=== PATIENT | female | born 1960 | race African-American/Black ===

== ENCOUNTER 2018-07-03 18:29 | Observation (INO) ==
[2018-07-03] MEDS ORDERED: ONDANSETRON 4 MG/2 ML VIAL IV STA (19:19)
[2018-07-03] MEDS ORDERED: ASPIRIN 325 MG TABLET PO STA (19:19)
[2018-07-03] MEDS ORDERED: MORPHINE 4 MG/1 ML VIAL IV STA (19:19)
[2018-07-03] MEDS ORDERED: ALUM/MAG/SIMETH/LIDO VISC 1:1 30 ML BOTTLE PO STA (19:19)
[2018-07-03] MEDS ORDERED: NITROGLYCERIN 2% OINT 1 INCH/GM PACK TOP STA (19:19)
[2018-07-03 19:47] LABS: Basophils % 0.2 % (0.0-0.8); Eosinophils # 0.1 10*3/uL (0.0-0.87); Eosinophils % 0.7 % (0.00-10.9); Hematocrit 38.4 VOL% (35.7-47.0); Hemoglobin 11.6 GM/DL (12.0-16.0); Immature Granulocytes % 0.3 %; Immature Granulocytes Absolute 0.03 #; Lymphocytes # 2.9 10*3/uL (1.4-4.0); Lymphocytes % 30.8 % (21.3-54.2); Mean Corpuscular HGB Conc 30.2 GM/DL (32-36); Mean Corpuscular Hemoglobin 22 PG (27-34); Mean Corpuscular Volume 73.7 FL (87-102); Mean Platelet Volume 9.8 FL (9.6-12.0); Monocytes # 0.7 10*3/uL (0.11-0.8); Monocytes % 7.5 % (1.7-12.7); Neutrophils # 5.7 10*3/uL (1.4-7.4); Neutrophils % 60.5 % (38.7-73.9); Platelet Count 295 T/CUMM (130-400); Red Blood Count 5.21 MC/CUMM (3.8-5.5); Red Cell Distribution Width 14.6 % (9.3-17.3); White Blood Count 9.4 T/CUMM (4-12)
[2018-07-03 19:58] LABS: PT Patient Result 11.2 SECS
[2018-07-03 21:18] LABS: Bilirubin,Total 0.4 MG/DL (0.2-1.0); Calcium 8.9 MG/DL (8.5-10.1); Osmolality,Calculated 281.7 MOS/KG (273-304); Potassium 3.4 MMOL/L (3.5-5.1); Total Protein 7.3 G/DL (6.4-8.3)
[2018-07-03] MEDS ORDERED: POTASSIUM CHLORIDE 20 MEQ TABLET PO STA (21:26)
[2018-07-03] MEDS ORDERED: MAGNESIUM SULF RIDER 2 GM in PREMIX 1 EACH IV STA (21:26)
[2018-07-03] MEDS ORDERED: MORPHINE 4 MG/1 ML VIAL IV PRN (23:19)
[2018-07-03] MEDS ORDERED: ONDANSETRON 4 MG/2 ML VIAL IV PRN (23:19)
[2018-07-03] MEDS ORDERED: DOCUSATE SODIUM 100 MG CAPSULE PO PRN (23:23)
[2018-07-03] MEDS ORDERED: DEXTROSE 50% 25 GM/50 ML SYRINGE IV PRN (23:24)
[2018-07-03] MEDS ORDERED: GLUCAGON 1 MG VIAL IM PRN (23:24)
[2018-07-03] MEDS ORDERED: ENOXAPARIN 40 MG/0.4 ML SYRINGE SUBCUT SCH (23:30)
[2018-07-04 00:02] LABS: Risk Ratio 4.11; VLDL CHOLESTEROL 20.8 MG/DL
[2018-07-04] MEDS: NITROGLYCERIN 2% OINT 1 INCH/GM PACK TOP SCH ×4 (01:01→18:28)
[2018-07-04 02:36] LABS: Apearance,Urine Slightly Hazy (Clear); Bacteria,Urine Occasional /HPF (Few); Bilirubin,Urine Negative (Negative); Blood, Urine Negative (Negative); Glucose,Urine (UA) >=500 mg/dL (Negative); Ketones,Urine 5 mg/dL (Negative); Mucus,Urine Occasional /LPF (Occasional); Nitrite,Urine Negative (Negative); Protein,Urine 100 MG/DL; RBC,Urine 4 /HPF (0-4); Squamous Epithelial Cell,Urine Occasional /HPF (0-10); Transitional Epi Cells,Urine Occasional /HPF (<1); Urine Color Yellow (Yellow); Urine Specific Gravity 1.022 (1.001-1.035); Urine Urobilinogen < 2.0 EU/DL (0.2-1.0); WBC,Urine 4 /HPF (0-6)
[2018-07-04] MEDS ORDERED: LEVOTHYROXINE 50 MCG TABLET PO SCH (06:00)
[2018-07-04] MEDS ORDERED: hydroCHLOROthiazide 25 MG TABLET PO SCH (09:00)
[2018-07-04] MEDS ORDERED: ATORVASTATIN 10 MG TABLET PO SCH (09:00)
[2018-07-04] MEDS: GABAPENTIN 600 MG TABLET PO SCH ×2 (09:13→15:55)
[2018-07-04] MEDS: CARVEDILOL 25 MG TABLET PO SCH ×2 (09:13→17:26)
[2018-07-04] MEDS: INSULIN REGULAR 100 UNIT/ML SUBCUT SCH ×3 (09:17→17:26)
[2018-07-04] MEDS ORDERED: amLODIPine 5 MG TABLET PO SCH (11:00)
[2018-07-04 16:17] VITALS: BP 112/66
[2018-07-05] MEDS ORDERED: PANTOPRAZOLE 40 MG TABLET PO SCH (09:00)
[2018-07-05] MEDS ORDERED: ASPIRIN EC 81 MG TABLET PO SCH (09:00)
== END 2018-07-04 18:55 | disposition home or self-care (01) ==
LOC: N.ED 18:29 → N.EDINP 23:19 → INTOOBSV 23:19 → N.EDINP 07-04 00:25 → N.3E 07-04 02:08
PROVIDERS: ADMIT Internal Medicine; ATTEND Internal Medicine

== ENCOUNTER 2021-09-18 18:30 | Inpatient (IN) ==
[2021-09-18] MEDS ORDERED: SODIUM CHLORIDE 0.9% 500 ML IV STA (23:23)
[2021-09-18] MEDS ORDERED: ONDANSETRON 4 MG/2 ML VIAL IV STA (23:23)
[2021-09-19 01:02] LABS: Basophils % 0.3 % (0.0-0.8); Hematocrit 42.1 VOL% (35.7-47.0); Hemoglobin 12.4 GM/DL (12.0-16.0); Immature Granulocytes % 0.3 %; Immature Granulocytes Absolute 0.03 #; Lymphocytes # 2.5 10*3/uL (1.4-4.0); Lymphocytes % 24.3 % (21.3-54.2); Mean Corpuscular HGB Conc 29.5 GM/DL (32-36); Mean Corpuscular Volume 73.6 FL (87-102); Mean Platelet Volume 10.7 FL (9.6-12.0); Monocytes # 0.6 10*3/uL (0.11-0.8); Monocytes % 5.3 % (1.7-12.7); Neutrophils % 69.8 % (38.7-73.9); Platelet Count 295 T/CUMM (130-400); Red Blood Count 5.72 MC/CUMM (3.8-5.5); Red Cell Distribution Width 17.1 % (9.3-17.3); White Blood Count 10.4 T/CUMM (4-12)
[2021-09-19 01:05] LABS: Alanine Aminotransferase 29 U/L (13-56); Albumin 3.8 G/DL (3.4-5.0); Alkaline Phosphatase 115 U/L (45-117); Aspartate Amino Transferase 21 U/L (0-37); Bilirubin,Total < 0.39 MG/DL (0.20-1.00); Blood Urea Nitrogen 46 MG/DL (7-18); Calcium 9.9 MG/DL (8.5-10.1); Carbon Dioxide 28 MMOL/L (21-32); Chloride 105 MMOL/L (98-107); Estimated Glom Filtration Rate 22 ML/MIN; Glucose 194 MG/DL (74-106); Osmolality,Calculated 297.3 MOS/KG (273-304); Potassium 4.2 MMOL/L (3.5-5.1); Sodium 141 MMOL/L (136-145); Total Protein 9.2 G/DL (6.4-8.2)
[2021-09-19] MEDS ORDERED: LACTATED RINGERS 1,000 ML IV ONE (01:13)
[2021-09-19 02:07] LABS: Granular Casts,Urine 10 /LPF (0-1); Hyaline Casts,Urine 285 /LPF (0-3); Mucus,Urine Few /LPF (Occasional); RBC,Urine 5 /HPF (0-4); Squamous Epithelial Cell,Urine Occasional /HPF (0-10)
[2021-09-19 02:08] LABS: Bilirubin,Urine Moderate mg/dL (Negative); Blood, Urine Trace mg/dL (Negative); Glucose,Urine (UA) Negative (Negative); Ketones,Urine 15 mg/dL (Negative); Nitrite,Urine Negative (Negative); Protein,Urine 100 mg/dL (Negative); Urine Appearance Clear (Clear); Urine Color Yellow (Yellow); Urine Specific Gravity >= 1.030 (1.001-1.035); Urine Urobilinogen 0.2 eU/dL (<2.0); Urine pH 5.5 (4.5-8.0)
[2021-09-19] MEDS ORDERED: DEXTROSE 10% 250 ML BAG IV PRN (02:36)
[2021-09-19] MEDS ORDERED: hydrALAZINE 20 MG/1 ML VIAL IV PRN (02:36)
[2021-09-19] MEDS ORDERED: GLUCAGON 1 MG VIAL IM PRN (02:36)
[2021-09-19] MEDS ORDERED: ACETAMINOPHEN 325 MG TABLET PO PRN (02:36)
[2021-09-19] MEDS ORDERED: ONDANSETRON 4 MG/2 ML VIAL IV PRN (02:36)
[2021-09-19] MEDS: LACTATED RINGERS 1,000 ML IV SCH ×2 (03:21→13:51)
[2021-09-19] MEDS ORDERED: PANTOPRAZOLE 40 MG TABLET PO ONE (06:00)
[2021-09-19] MEDS: PANTOPRAZOLE 40 MG TABLET PO SCH ×2 (06:00→09:06)
[2021-09-19] MEDS: INSULIN LISPRO 100 UNIT/ML SUBCUT SCH ×4 (07:53→22:30)
[2021-09-19] MEDS: ENOXAPARIN 30 MG/0.3 ML SYRINGE SUBCUT SCH (21:33)
[2021-09-19] MEDS: busPIRone 15 MG TABLET PO SCH (21:33)
[2021-09-19] MEDS: GABAPENTIN 300 MG CAPSULE PO SCH (21:33)
[2021-09-19] MEDS: carvediloL 25 MG TABLET PO SCH (21:33)
[2021-09-19] MEDS: LATANOPROST 0.005% OPH SOLN 2.5 ML BOTTLE BOTH EYES SCH (22:34)
[2021-09-20] MEDS: LACTATED RINGERS 1,000 ML IV SCH (03:03)
[2021-09-20 05:35] LABS: Basophils % 0.4 % (0.0-0.8); Eosinophils # 0.1 10*3/uL (0.0-0.87); Eosinophils % 0.8 % (0.00-10.9); Hematocrit 32.6 VOL% (35.7-47.0); Hemoglobin 10.1 GM/DL (12.0-16.0); Immature Granulocytes % 0.1 %; Immature Granulocytes Absolute 0.01 #; Lymphocytes # 4.7 10*3/uL (1.4-4.0); Mean Corpuscular Volume 71.6 FL (87-102); Mean Platelet Volume 11.4 FL (9.6-12.0); Monocytes # 0.8 10*3/uL (0.11-0.8); Monocytes % 9.1 % (1.7-12.7); Neutrophils % 34.6 % (38.7-73.9); Platelet Count 242 T/CUMM (130-400); Red Blood Count 4.55 MC/CUMM (3.8-5.5); Red Cell Distribution Width 15.2 % (9.3-17.3); White Blood Count 8.5 T/CUMM (4-12)
[2021-09-20 05:57] LABS: Calcium 8.9 MG/DL (8.5-10.1)
[2021-09-20] MEDS: LEVOTHYROXINE 50 MCG TABLET PO SCH (06:10)
[2021-09-20 06:13] LABS: Lymphocytes 56 % (20-55); Platelet Estimate Adequate; Total Cells Counted 100
[2021-09-20 06:17] LABS: Risk Ratio 4.47; VLDL Cholesterol 23.2 MG/DL
[2021-09-20] MEDS: INSULIN LISPRO 100 UNIT/ML SUBCUT SCH ×4 (07:40→21:49)
[2021-09-20] MEDS: POTASSIUM CHLORIDE 20 MEQ TABLET PO SCH ×2 (08:52→10:56)
[2021-09-20] MEDS: busPIRone 15 MG TABLET PO SCH ×2 (08:52→20:28)
[2021-09-20] MEDS: GABAPENTIN 300 MG CAPSULE PO SCH ×2 (08:53→20:27)
[2021-09-20] MEDS: FOLIC ACID 1 MG TABLET PO SCH (08:53)
[2021-09-20] MEDS: PANTOPRAZOLE 40 MG TABLET PO SCH (08:53)
[2021-09-20] MEDS: carvediloL 25 MG TABLET PO SCH ×2 (08:53→20:28)
[2021-09-20] MEDS ORDERED: POTASSIUM CHLORIDE 20 MEQ TABLET PO ONE ×3 (16:21→21:00)
[2021-09-20] MEDS ORDERED: INSULIN GLARGINE 100 UNIT/ML SUBCUT SCH (17:00)
[2021-09-20] MEDS: LOSARTAN 50 MG TABLET PO SCH (17:47)
[2021-09-20] MEDS: amLODIPine 10 MG TABLET PO SCH (17:48)
[2021-09-20] MEDS: ENOXAPARIN 30 MG/0.3 ML SYRINGE SUBCUT SCH (20:28)
[2021-09-20] MEDS: LATANOPROST 0.005% OPH SOLN 2.5 ML BOTTLE BOTH EYES SCH (20:28)
[2021-09-20] MEDS ORDERED: ATORVASTATIN 10 MG TABLET PO SCH (21:00)
[2021-09-21 05:05] LABS: Basophils % 0.3 % (0.0-0.8); Eosinophils # 0.3 10*3/uL (0.0-0.87); Eosinophils % 4.4 % (0.00-10.9); Hematocrit 35.4 VOL% (35.7-47.0); Hemoglobin 10.8 GM/DL (12.0-16.0); Immature Granulocytes % 0.3 %; Immature Granulocytes Absolute 0.02 #; Lymphocytes # 4.2 10*3/uL (1.4-4.0); Lymphocytes % 55.1 % (21.3-54.2); Mean Corpuscular HGB Conc 30.5 GM/DL (32-36); Mean Corpuscular Volume 73.8 FL (87-102); Mean Platelet Volume 10.8 FL (9.6-12.0); Monocytes # 0.7 10*3/uL (0.11-0.8); Monocytes % 9.5 % (1.7-12.7); Neutrophils % 30.4 % (38.7-73.9); Platelet Count 216 T/CUMM (130-400); Red Cell Distribution Width 15.6 % (9.3-17.3); White Blood Count 7.6 T/CUMM (4-12)
[2021-09-21 05:25] LABS: Albumin 2.9 G/DL (3.4-5.0); Bilirubin,Total 0.5 MG/DL (0.20-1.00); Osmolality,Calculated 282.3 MOS/KG (273-304); Potassium 4.7 MMOL/L (3.5-5.1); Total Protein 6.9 G/DL (6.4-8.2)
[2021-09-21 05:39] LABS: Atypical Lymphocytes Few; Eosinophils 7 % (0-10); Hypochromia 1+; Lymphocytes 63 % (20-55); Ovalocytes Slight; Target Cells Slight; Total Cells Counted 100
[2021-09-21 05:40] LABS: Microcytosis 1+; Platelet Estimate Normal
[2021-09-21] MEDS: LEVOTHYROXINE 50 MCG TABLET PO SCH (06:20)
[2021-09-21] MEDS ORDERED: MAGNESIUM SULF RIDER 2 GM/50 ML PREMIX IV ONE (08:13)
[2021-09-21] MEDS: INSULIN LISPRO 100 UNIT/ML SUBCUT SCH ×2 (09:23→11:52)
[2021-09-21] MEDS: busPIRone 15 MG TABLET PO SCH (09:23)
[2021-09-21] MEDS: LOSARTAN 50 MG TABLET PO SCH (09:24)
[2021-09-21] MEDS: FOLIC ACID 1 MG TABLET PO SCH (09:24)
[2021-09-21] MEDS: carvediloL 25 MG TABLET PO SCH (09:24)
[2021-09-21] MEDS: amLODIPine 10 MG TABLET PO SCH (09:24)
[2021-09-21] MEDS: GABAPENTIN 300 MG CAPSULE PO SCH (09:24)
[2021-09-21] MEDS: PANTOPRAZOLE 40 MG TABLET PO SCH (09:24)
[2021-09-21] MEDS: LACTATED RINGERS 1,000 ML IV SCH (10:51)
[2021-09-21 12:17] VITALS: BP 133/72
== END 2021-09-21 15:25 | disposition home or self-care (01) | DRG 469 ==
LOC: N.ED 18:30 → N.EDINP 09-19 02:37 → N.TELES 09-19 20:32
PROVIDERS: ADMIT Family Medicine; ATTEND Family Medicine